=== PATIENT | female | born 1960 | race Caucasian/White ===

== ENCOUNTER → 2020-07-21 | Outpatient (CLI) | payer BC, OTHER ==
[~2020-07-21] MED LIST: ACET32TAB PO; IBUP200C90 PO
== END ==
LOC: M LABSMTC 08:47
PROVIDERS: ATTEND Anesthesiology
DX: Z20.828 Contact with and (suspected) exposure to other viral communicable diseases (principal); Z11.59 Encounter for screening for other viral diseases

== ENCOUNTER 2020-07-26 10:42 | Day surgery (SDC) | payer BC ==
[~2020-07-26] VITALS: Ht 172.7 cm; Wt 82.9 kg
[~2020-07-26 10:42] MED LIST changes: +NS 1,000 ML IV ONE
[2020-07-26] MEDS ORDERED: propofoL 200 MG/20 ML VIAL As Ordered ONE (11:47)
[2020-07-26] MEDS ORDERED: ONDANSETRON 4MG/2ML VIAL As Ordered ONE (12:17)
--- NOTE | 2020-07-26 12:36 | ROOR ---
Patient Name: Gela Lujan Procedure Date: 07/26/2020 12:13 PM Date of : 1960 Age: 60 Room: [facility] Gender: Female Note Status: Finalized Procedure: Colonoscopy Indications: Screening for colorectal malignant neoplasm Providers: Seferino Delong Jr, MD Referring MD: Estrella Hills DO Requesting Provider: Medicines: Propofol per Anesthesia Complications: No immediate complications. Procedure: Pre-Anesthesia Assessment: - Prior to the procedure, a History and Physical was performed, and patient medications and allergies were reviewed. The patient is competent. The risks and benefits of the procedure and the sedation options and risks were discussed with the patient. All questions were answered and informed consent was obtained. Patient identification and proposed procedure were verified by the physician and the nurse in the pre-procedure area and in the procedure room. Mental Status Examination: alert and oriented. Airway Examination: normal oropharyngeal airway and neck mobility. Respiratory Examination: clear to auscultation. CV Examination: normal. ASA Grade Assessment: II - A patient with mild systemic disease. After reviewing the risks and benefits, the patient was deemed in satisfactory condition to undergo the procedure. The anesthesia plan was to use moderate sedation / analgesia (conscious sedation). Immediately prior to administration of medications, the patient was re-assessed for adequacy to receive sedatives. The heart rate, respiratory rate, oxygen saturations, blood pressure, adequacy of pulmonary ventilation, and response to care were monitored throughout the procedure. The physical status of the patient was re-assessed after the procedure. The Colonoscope was introduced through the anus and advanced to the cecum, identified by appendiceal orifice and ileocecal valve. The colonoscopy was performed without difficulty. The patient tolerated the procedure well. The quality of the bowel preparation was adequate. Findings: The rectum, descending colon, transverse colon, ascending colon, cecum, appendiceal orifice and ileocecal valve appeared normal. Two polyps were found in the recto-sigmoid colon. The polyps were diminutive in size. These polyps were removed with a jumbo cold forceps. Resection and retrieval were complete. A few small-mouthed diverticula were found in the sigmoid colon. Impression: - The rectum, descending colon, transverse colon, ascending colon, cecum, appendiceal orifice and ileocecal valve are normal. - Two diminutive polyps at the recto-sigmoid colon, removed with a jumbo cold forceps. Resected and retrieved. - Diverticulosis in the sigmoid colon. Recommendation: - Discharge patient to home (ambulatory). - Telephone my office for pathology results in 1 week. Procedure Code(s): --- Professional --- 91006, Colonoscopy, flexible; with biopsy, single or multiple Diagnosis Code(s): --- Professional --- Z12.11, Encounter for screening for malignant neoplasm of colon K63.5, Polyp of colon K57.30, Diverticulosis of large intestine without perforation or abscess without bleeding CPT copyright 2019 [employer]. All rights reserved. The codes documented in this report are preliminary and upon web services manager review may be revised to meet current compliance requirements. Seferino Delong MD Seferino Delong Jr, MD 07/26/2020 12:36:09 PM Electronically signed by Seferino Delong Jr, MD Number of Addenda: 0 Note Initiated On: 07/26/2020 12:13 PM Estimated Blood Loss: Estimated blood loss: none.
[2020-07-26 13:00] VITALS: BP 144/81
== END 2020-07-26 13:09 | disposition home or self-care (01) ==
LOC: M OPP 10:42
PROVIDERS: ATTEND Surgery
DX: Z12.11 Encounter for screening for malignant neoplasm of colon (principal); K63.5 Polyp of colon; K57.30 Diverticulosis of large intestine without perforation or abscess without bleeding; Z87.19 Personal history of other diseases of the digestive system; Z88.1 Allergy status to other antibiotic agents
CPT/HCPCS: 45380; 88305; J2405